=== PATIENT | male | born 1945 | race Caucasian/White ===

== ENCOUNTER 2023-11-21 22:50 | Inpatient (IN) | payer MEDICARE, OTHER ==
[~2023-11-21] VITALS: Ht 172.7 cm; Wt 90.4 kg
[~2023-11-21 22:50] MED LIST: DIOVAN PO
[2023-11-21 23:00] VITALS: BP 131/67; TEMP 98.3; O2SAT 97
[2023-11-22] MEDS ORDERED: MIRALAX 17 GM POWD.PACK PO PRN (00:15)
[2023-11-22] MEDS ORDERED: POTASSIUM CHLORIDE IV SCH ×2 (00:15→14:00)
[2023-11-22] MEDS ORDERED: NORMAL SALINE FLUSH 10 ML DISP.SYRIN IV SCH (00:15)
[2023-11-22] MEDS ORDERED: HYDROMORPHONE 1 MG/1 ML DISP.SYRIN IV PRN ×2 (00:15→12:00)
[2023-11-22] MEDS ORDERED: SODIUM CHLORIDE IV SCH ×2 (00:15→14:00)
[2023-11-22] MEDS ORDERED: CEFTRIAXONE IV SCH (00:15)
[2023-11-22] MEDS ORDERED: TAMSULOSIN HCL 0.4 MG CAP.SR.24H PO SCH (00:15)
[2023-11-22] MEDS ORDERED: AMLO10TA4 PO (01:19)
[2023-11-22] MEDS ORDERED: PANT40TA49 PO (02:08)
[2023-11-22] MEDS ORDERED: MAGN2PIG IV (02:08)
[2023-11-22] MEDS ORDERED: ROSU10TA2 PO (02:08)
[2023-11-22] MEDS ORDERED: HEPA500034 SUBCUT (02:08)
[2023-11-22] MEDS ORDERED: INSU100I52 SUBCUT ×2 (02:08)
[2023-11-22] MEDS ORDERED: FINA5TAB11 PO (02:08)
[2023-11-22] MEDS ORDERED: CEFE2FRO IV (02:08)
[2023-11-22] MEDS ORDERED: FERR-68 PO (02:08)
[2023-11-22] MEDS ORDERED: HYDR1LIQ PO (02:08)
[2023-11-22] MEDS ORDERED: ASPI81TA31 PO (02:08)
[2023-11-22] MEDS ORDERED: CARV6.25 PO (02:08)
[2023-11-22] MEDS ORDERED: INSU100V7 SQ (02:08)
[2023-11-22] MEDS ORDERED: CANA100T PO (02:08)
[2023-11-22] MEDS ORDERED: AMLO5TAB4 PO (02:08)
[2023-11-22] MEDS ORDERED: AZEL205. BNOSTRILS (02:08)
[2023-11-22] MEDS ORDERED: METR500T IV (02:08)
[2023-11-22] MEDS ORDERED: CEFT2FRO2 IV ×2 (02:08)
[2023-11-22] MEDS ORDERED: DULO60CA45 PO (02:08)
[2023-11-22] MEDS ORDERED: LIDO30AD10 TD (02:08)
[2023-11-22] MEDS ORDERED: INSU100I52 SQ (02:08)
[2023-11-22] MEDS ORDERED: SODI IV (02:08)
[2023-11-22] MEDS ORDERED: MAGN400O6 PO ×2 (02:08)
[2023-11-22] MEDS ORDERED: ARIP20TA4 PO (02:08)
[2023-11-22] MEDS ORDERED: CLOP75TA33 PO (02:08)
[2023-11-22] MEDS ORDERED: POLY250017 PO (02:08)
[2023-11-22] MEDS ORDERED: TAMS-3 PO (02:09)
[2023-11-22] MEDS ORDERED: NA P133E RC (02:09)
[2023-11-22] MEDS ORDERED: VALS160T2 PO (02:09)
[2023-11-22] MEDS ORDERED: VALS80TA2 PO (02:09)
[2023-11-22] MEDS ORDERED: ACET-3117 PO (02:24)
[2023-11-22] MEDS ORDERED: FLEET ENEMA 133 ML BOTTLE RC ONE (04:15)
[2023-11-22] MEDS ORDERED: KETOROLAC TROMETHAMINE 15 MG INJ IM ONE (04:30)
[2023-11-22] MEDS ORDERED: IV NORMAL SALINE 500 ML IV ONE (04:30)
[2023-11-22] MEDS ORDERED: CLON0.1T PO (05:08)
[2023-11-22] MEDS ORDERED: POLY119P2 PO (05:23)
[2023-11-22] MEDS ORDERED: ONDA4TAB11 IJ (05:23)
[2023-11-22] MEDS ORDERED: SENN-18 PO (05:23)
[2023-11-22] MEDS ORDERED: ONDA4TAB5 PO (05:23)
[2023-11-22] MEDS ORDERED: DEXT50DI8 IV (05:23)
[2023-11-22] MEDS ORDERED: HYDR0.5S3 IJ (05:23)
[2023-11-22] MEDS ORDERED: HYDR-4209 PO (05:23)
[2023-11-22] MEDS ORDERED: DIAZ5TAB4 PO (05:23)
[2023-11-22] MEDS ORDERED: CLONIDINE HCL 0.1 MG TABLET PO PRN ×2 (05:30→11:45)
[2023-11-22 05:36] VITALS: BP 161/70; TEMP 98.2; O2SAT 95
[2023-11-22] MEDS ORDERED: METRONIDAZOLE 500 MG/NS 100ML 500 MG in PREMIXED 1 EACH IV SCH (06:00)
[2023-11-22] MEDS ORDERED: NS IV SCH (06:00)
[2023-11-22] MEDS ORDERED: CEFEPIME HCL IV SCH ×2 (06:00→14:00)
[2023-11-22] MEDS ORDERED: INSULIN LISPRO 300 UNIT/3 ML VIAL SQ SCH ×2 (06:00→07:30)
[2023-11-22] MEDS ORDERED: PANTOPRAZOLE SODIUM 40 MG TABLET.DR PO SCH (07:00)
[2023-11-22] MEDS ORDERED: CARVEDILOL 6.25 MG TABLET PO SCH (08:00)
[2023-11-22] MEDS ORDERED: CLOPIDOGREL 75 MG TABLET PO SCH (09:00)
[2023-11-22] MEDS ORDERED: MAGNESIUM HYDROXIDE 30 ML LIQUID UDC PO PRN ×2 (09:00→12:00)
[2023-11-22] MEDS ORDERED: LIDOCAINE 5% PATCH TD SCH (09:00)
[2023-11-22] MEDS ORDERED: AMLODIPINE 10 MG TABLET PO SCH (09:00)
[2023-11-22] MEDS ORDERED: FINASTERIDE 5 MG TABLET PO SCH (09:00)
[2023-11-22] MEDS ORDERED: FERROUS SULFATE 325 MG TABEC PO SCH (09:00)
[2023-11-22] MEDS ORDERED: DULOXETINE 60 MG CAPSULE.DR PO SCH (09:00)
[2023-11-22] MEDS ORDERED: VALSARTAN 160 MG TABLET PO SCH (09:00)
[2023-11-22] MEDS ORDERED: ASPIRIN EC 81 MG TABLET.DR PO SCH (09:00)
[2023-11-22] MEDS ORDERED: HEPARIN SODIUM,PORCINE 5,000 UNITS/ML VIAL SQ SCH (09:00)
[2023-11-22] MEDS ORDERED: AMLODIPINE 5 MG TABLET PO SCH (09:00)
[2023-11-22] MEDS ORDERED: VALSARTAN 80 MG TABLET PO SCH (09:00)
[2023-11-22] MEDS ORDERED: ONDANSETRON HCL 4 MG TABLET PO PRN (12:00)
[2023-11-22 12:02] VITALS: BP 144/73; TEMP 98; O2SAT 98
[2023-11-22] MEDS ORDERED: SENNOSIDES 1 TABLET PO PRN (12:15)
[2023-11-22] MEDS ORDERED: DEXTROSE 50% 50 ML DISP.SYRIN IV PRN (12:30)
[2023-11-22] MEDS: DULOXETINE 60 MG CAPSULE.DR PO SCH (13:32)
[2023-11-22] MEDS: ASPIRIN EC 81 MG TABLET.DR PO SCH (13:33)
[2023-11-22] MEDS: TAMSULOSIN HCL 0.4 MG CAP.SR.24H PO SCH (13:33)
[2023-11-22] MEDS: VALSARTAN 80 MG TABLET PO SCH (13:33)
[2023-11-22] MEDS: CLOPIDOGREL 75 MG TABLET PO SCH (13:34)
[2023-11-22] MEDS: PANTOPRAZOLE SODIUM 40 MG TABLET.DR PO SCH (13:34)
[2023-11-22] MEDS: FINASTERIDE 5 MG TABLET PO SCH (13:34)
[2023-11-22] MEDS: AMLODIPINE 10 MG TABLET PO SCH (13:34)
[2023-11-22] MEDS: INSULIN GLARGINE,HUM 300 UNITS/3 ML CARTRIDGE SQ SCH (13:40)
[2023-11-22] MEDS: INSULIN REGULAR, HUMAN 1000 UNIT/10 ML VIAL SQ PRN (13:41)
[2023-11-22] MEDS: HYDROCODONE/APAP 5-325MG TABLET PO PRN (15:28)
[2023-11-22 16:06] VITALS: BP 148/76; TEMP 97.1; O2SAT 97
[2023-11-22] MEDS: FERROUS SULFATE 325 MG TABEC PO SCH (17:01)
[2023-11-22] MEDS: CARVEDILOL 6.25 MG TABLET PO SCH (17:01)
[2023-11-22] MEDS: BLOOD SUGAR DIAGNOSTIC 1 EACH STRIP VI SCH (17:01)
[2023-11-22 20:00] VITALS: BP 136/72; TEMP 98.2; O2SAT 96
[2023-11-22] MEDS ORDERED: INSULIN GLARGINE,HUM 300 UNITS/3 ML CARTRIDGE SQ SCH (21:00)
[2023-11-22] MEDS ORDERED: ARIPIPRAZOLE 10 MG TABLET PO SCH (21:00)
[2023-11-22] MEDS: ATORVASTATIN 20 MG TABLET PO SCH (21:15)
[2023-11-22] MEDS: HEPARIN SODIUM,PORCINE 5,000 UNITS/ML VIAL SQ SCH (22:15)
[2023-11-23 06:00] VITALS: BP 145/68; TEMP 98.2; O2SAT 95
[2023-11-23] MEDS: MIRALAX 17 GM POWD.PACK PO SCH (08:53)
[2023-11-23 09:11] VITALS: BP 158/71; TEMP 98; O2SAT 95
[2023-11-23 16:00] VITALS: BP 120/62; TEMP 97.7; O2SAT 96
[2023-11-23 20:31] VITALS: BP 140/76; TEMP 98.3; O2SAT 94
[2023-11-23] MEDS: TAMSULOSIN HCL 0.4 MG CAP.SR.24H PO SCH (20:45)
[2023-11-24 06:41] VITALS: BP 157/83; TEMP 97.9; O2SAT 96
[2023-11-24 08:45] VITALS: BP 159/76; TEMP 98; O2SAT 97
[2023-11-24] MEDS: LIDOCAINE 5% PATCH TD PRN (08:58)
[2023-11-24 15:56] VITALS: BP 115/47; TEMP 98.4; O2SAT 100
[2023-11-24] MEDS: METRONIDAZOLE 500 MG TABLET PO SCH (21:06)
[2023-11-24 22:17] VITALS: BP 139/83; TEMP 98.2; O2SAT 100
[2023-11-24] MEDS ORDERED: CEFEPIME HCL 1 G VIAL ONE (22:40)
[2023-11-24] MEDS: CEFEPIME HCL 2 GM in IV DEXTROSE 5% 100 ML IV SCH (22:53)
[2023-11-25 06:04] LABS: BASOPHILS % (AUTO) 0.4 % (0.0-2.0); EOSINOPHILS # (AUTO) 0.2 K/uL (0.0-0.7); EOSINOPHILS % (AUTO) 1.9 % (0.0-7.0); HEMATOCRIT 32.5 % (36.7-47.1); HEMOGLOBIN 10.3 g/dL (12.5-16.3); LYMPHOCYTES # (AUTO) 2.7 K/uL (0.8-4.8); LYMPHOCYTES % (AUTO) 25.4 % (20.5-51.5); MEAN CORPUSCULAR HEMOGLOBIN 28.9 uug (23.8-33.4); MEAN CORPUSCULAR HGB CONC 32 g/dL (32.5-36.3); MEAN CORPUSCULAR VOLUME 91.6 fL (73.0-96.2); MONOCYTES # (AUTO) 1.2 K/uL (0.1-1.30); NEUTROPHILS # (AUTO) 6.4 K/uL (1.8-8.9); NEUTROPHILS % (AUTO) 61.3 % (38.5-71.5); PLATELET COUNT (AUTO) 267 K/uL (152-348); RED BLOOD CELL COUNT(AUTO) 3.55 MIL/uL (4.06-5.63); WHITE BLOOD COUNT (AUTO) 10.5 K/uL (3.6-10.2)
[2023-11-25 06:24] LABS: IRON, SERUM 49 ug/dL (50-175)
[2023-11-25 06:30] LABS: THYROID STIMULATING HORMONE 2.028 mIU/mL (0.358-3.740)
[2023-11-25 06:57] LABS: ALANINE AMINOTRANSFERASE 28 U/L (16-63); ALBUMIN 2.4 g/dL (3.4-5.0); ALKALINE PHOSPHATASE 71 U/L (50-136); ASPARTATE AMINOTRANSFERASE 27 U/L (15-37); BILIRUBIN,TOTAL 0.3 mg/dL (0.2-1.0); CALCIUM 8.7 mg/dL (8.5-10.1); CARBON DIOXIDE 27 mmol/L (21-32); CHLORIDE 104 mmol/L (98-107); CHOLESTEROL 139 mg/dL (<200); CREATININE 0.9 mg/dL (0.6-1.3); GLUCOSE 172 mg/dL (74-106); HDL CHOLESTEROL 38 mg/dL (40-60); PHOSPHOROUS 3.2 mg/dL (2.5-4.9); POTASSIUM 4.2 mmol/L (3.5-5.1); SODIUM SERUM 137 mmol/L (136-145); TOTAL PROTEIN, SERUM 6.7 g/dL (6.4-8.2); TRIGLYCERIDES 138 MG/DL (30-150); UREA NITROGEN, BLOOD 16 mg/dL (7-18)
[2023-11-25 07:30] VITALS: BP 176/86; TEMP 98.2; O2SAT 94
[2023-11-25 09:00] VITALS: BP 145/66; O2SAT 100
[2023-11-25] MEDS: HYDROMORPHONE 1 MG/1 ML DISP.SYRIN IV PRN (10:03)
[2023-11-25 16:13] VITALS: BP 139/71; TEMP 97.5
[2023-11-25 20:00] VITALS: BP 137/76; TEMP 97.9; O2SAT 98
[2023-11-26 06:00] VITALS: BP 144/72; TEMP 98; O2SAT 100
[2023-11-26 11:40] VITALS: BP 154/73; TEMP 98.2; O2SAT 95
[2023-11-26 16:21] VITALS: BP 143/71; TEMP 97.9; O2SAT 98
[2023-11-26] MEDS: DIAZEPAM 5 MG TABLET PO PRN (18:49)
[2023-11-26 22:30] VITALS: BP 119/54; TEMP 98.2; O2SAT 92
[2023-11-27 07:01] VITALS: BP 158/70; TEMP 97.8; O2SAT 97
[2023-11-27] MEDS: ACETAMINOPHEN 325 MG TABLET PO PRN (09:43)
[2023-11-27] MEDS: OXYCODONE HCL 5 MG TABLET PO PRN (10:48)
[2023-11-27] MEDS: HYDROCODONE/APAP 5-325MG TABLET PO SCH (13:27)
[2023-11-27] MEDS: METHOCARBAMOL 500 MG TABLET PO SCH (13:27)
[2023-11-27 16:00] VITALS: BP 135/84; TEMP 98.2; O2SAT 97
[2023-11-27 22:25] VITALS: BP 126/70; TEMP 97.5; O2SAT 96
[2023-11-28 04:44] VITALS: BP 146/82; TEMP 98.2; O2SAT 97
[2023-11-28 09:13] VITALS: BP 131/66; TEMP 98.1; O2SAT 95
[2023-11-28 14:07] VITALS: BP 131/66; TEMP 98; O2SAT 96
[2023-11-29 09:00] LABS: THYROID STIMULATING HORMONE 2.302 mIU/mL (0.358-3.740)
[2023-11-30] MEDS ORDERED: METH-806 PO (18:23)
[2023-11-30] MEDS ORDERED: CEFE2FRO IV (18:23)
[2023-11-30] MEDS ORDERED: METR500T PO (18:23)
[2023-11-30] MEDS ORDERED: ATOR20TA PO (18:23)
[2023-12-02 14:06] LABS: METHYLMALONIC ACID 292 nmol/L (0-378)
== END 2023-11-28 13:54 | disposition short-term general hospital (02) | DRG 559 ==
PROVIDERS: ADMIT Physical Medicine & Rehabilitation Pain Medicine; ATTEND Physical Medicine & Rehabilitation Pain Medicine
DX: Z47.89 Encounter for other orthopedic aftercare (principal); A41.52 Sepsis due to Pseudomonas; G06.1 Intraspinal abscess and granuloma; N17.9 Acute kidney failure, unspecified; D50.9 Iron deficiency anemia, unspecified; R55 Syncope and collapse; E78.5 Hyperlipidemia, unspecified; F39 Unspecified mood [affective] disorder; I10 Essential (primary) hypertension; I25.10 Atherosclerotic heart disease of native coronary artery without angina pectoris; N40.0 Benign prostatic hyperplasia without lower urinary tract symptoms; E11.9 Type 2 diabetes mellitus without complications; Z95.5 Presence of coronary angioplasty implant and graft
CPT/HCPCS: 36415; 83550; 83735; 83921; 84100; 84443; 85025; J0692; J1170; J1644; J1815; J3490

== ENCOUNTER 2023-11-28 14:18 | Inpatient (IN) | payer MEDICARE, OTHER ==
[~2023-11-28] VITALS: Ht 172.7 cm; Wt 90.3 kg
[~2023-11-28 14:18] MED LIST changes: +ACET-3117 PO; +AMLO10TA4 PO; +ASPI81TA31 PO; +AZEL205. BNOSTRILS; +CANA100T PO; +CARV6.25 PO; +CLON0.1T PO; +CLOP75TA33 PO; +DEXT50DI8 IV; +DIAZ5TAB4 PO; -DIOVAN PO; +DULO60CA45 PO; +FERR-68 PO; +FINA5TAB11 PO; +HEPA500034 SUBCUT; +HYDR-4209 PO; +HYDR0.5S3 IJ; +INSU100I52 SQ; +INSU100V7 SQ; +MAGN400O6 PO; +ONDA4TAB5 PO; +PANT40TA49 PO; +POLY119P2 PO; +ROSU10TA2 PO; +SENN-18 PO; +TAMS-3 PO; +VALS80TA2 PO
[2023-11-28] MEDS ORDERED: ACETAMINOPHEN 325 MG TABLET PO PRN (14:30)
[2023-11-28] MEDS ORDERED: CLONIDINE HCL 0.1 MG TABLET PO PRN (14:45)
[2023-11-28] MEDS ORDERED: DIAZEPAM 5 MG TABLET PO PRN (14:45)
[2023-11-28] MEDS ORDERED: DEXTROSE 50% 50 ML DISP.SYRIN IV PRN ×2 (15:00→16:15)
[2023-11-28] MEDS ORDERED: MAGNESIUM HYDROXIDE 30 ML LIQUID UDC PO PRN ×2 (15:00→16:15)
[2023-11-28] MEDS ORDERED: SENNOSIDES 1 TABLET PO PRN ×2 (15:00→16:15)
[2023-11-28] MEDS ORDERED: ONDANSETRON HCL 4 MG TABLET PO PRN (15:00)
[2023-11-28 16:00] VITALS: BP 141/89; TEMP 98.2; O2SAT 98
[2023-11-28] MEDS ORDERED: HYDROCODONE/APAP 5-325MG TABLET PO PRN (16:15)
[2023-11-28] MEDS: METHOCARBAMOL 500 MG TABLET PO SCH (16:25)
[2023-11-28] MEDS ORDERED: PANTOPRAZOLE SODIUM 40 MG TABLET.DR PO SCH (16:30)
[2023-11-28] MEDS: METRONIDAZOLE 500 MG TABLET PO SCH (16:30)
[2023-11-28] MEDS ORDERED: CARVEDILOL 6.25 MG TABLET PO SCH (17:00)
[2023-11-28] MEDS ORDERED: FERROUS SULFATE 325 MG TABEC PO SCH (17:00)
[2023-11-28] MEDS: BLOOD SUGAR DIAGNOSTIC 1 EACH STRIP VI SCH (17:35)
[2023-11-28] MEDS: CARVEDILOL 6.25 MG TABLET PO SCH (17:37)
[2023-11-28] MEDS: OXYCODONE HCL 5 MG TABLET PO PRN (17:38)
[2023-11-28] MEDS: FERROUS SULFATE 325 MG TABEC PO SCH (17:40)
[2023-11-28] MEDS: CEFEPIME HCL 2 GM in IV DEXTROSE 5% 100 ML IV SCH (17:41)
[2023-11-28] MEDS ORDERED: CLONIDINE HCL 0.1 MG TABLET PO SCH (18:00)
[2023-11-28] MEDS ORDERED: ONDANSETRON HCL 4 MG TABLET PO SCH (18:00)
[2023-11-28] MEDS ORDERED: DIAZEPAM 5 MG TABLET PO SCH (18:00)
[2023-11-28] MEDS: INSULIN REGULAR, HUMAN 1000 UNIT/10 ML VIAL SQ PRN (18:21)
[2023-11-28 20:16] VITALS: BP 121/65; TEMP 98.4; O2SAT 96
[2023-11-28] MEDS: ATORVASTATIN 20 MG TABLET PO SCH (20:51)
[2023-11-28] MEDS: TAMSULOSIN HCL 0.4 MG CAP.SR.24H PO SCH (20:52)
[2023-11-28] MEDS: HEPARIN SODIUM,PORCINE 5,000 UNITS/ML VIAL SQ SCH (20:56)
[2023-11-28] MEDS: HYDROCODONE/APAP 5-325MG TABLET PO SCH (21:27)
[2023-11-28 23:45] VITALS: BP 125/65; TEMP 98.3; O2SAT 97
[2023-11-29] VITALS (7 sets, daily range): BP systolic 76–128; BP diastolic 48–69; TEMP 97.4–98.3; O2SAT 96–98
[2023-11-29 08:29] LABS: BASOPHILS # (AUTO) 0.1 K/UL (0.0-0.2); BASOPHILS % (AUTO) 1.1 % (0.0-2.0); EOSINOPHILS # (AUTO) 0.3 K/uL (0.0-0.7); EOSINOPHILS % (AUTO) 3.3 % (0.0-7.0); HEMATOCRIT 31.2 % (36.7-47.1); HEMOGLOBIN 10.2 g/dL (12.5-16.3); LYMPHOCYTES # (AUTO) 2.4 K/uL (0.8-4.8); LYMPHOCYTES % (AUTO) 27.9 % (20.5-51.5); MEAN CORPUSCULAR HEMOGLOBIN 29.9 uug (23.8-33.4); MEAN CORPUSCULAR HGB CONC 33 g/dL (32.5-36.3); MEAN CORPUSCULAR VOLUME 91.7 fL (73.0-96.2); MONOCYTES # (AUTO) 1.1 K/uL (0.1-1.30); MONOCYTES % (AUTO) 12.2 % (0.0-11.0); NEUTROPHILS # (AUTO) 4.8 K/uL (1.8-8.9); NEUTROPHILS % (AUTO) 55.5 % (38.5-71.5); PLATELET COUNT (AUTO) 242 K/uL (152-348); RED CELL DISTRIBUTION WIDTH 18.4 % (12.1-16.2); WHITE BLOOD COUNT (AUTO) 8.7 K/uL (3.6-10.2)
[2023-11-29 08:35] LABS: DIFFERENTIAL COMMENT 1
[2023-11-29 08:39] LABS: CALCIUM 8.8 mg/dL (8.5-10.1); CARBON DIOXIDE 27 mmol/L (21-32); CHLORIDE 103 mmol/L (98-107); CREATININE 1.1 mg/dL (0.6-1.3); GLUCOSE 180 mg/dL (74-106); POTASSIUM 4.5 mmol/L (3.5-5.1); SODIUM SERUM 135 mmol/L (136-145); UREA NITROGEN, BLOOD 24 mg/dL (7-18)
[2023-11-29 08:47] LABS: ALANINE AMINOTRANSFERASE 20 U/L (16-63); ALBUMIN 2.4 g/dL (3.4-5.0); ALKALINE PHOSPHATASE 79 U/L (50-136); ASPARTATE AMINOTRANSFERASE 13 U/L (15-37); BILIRUBIN,TOTAL 0.4 mg/dL (0.2-1.0); TOTAL PROTEIN, SERUM 6.8 g/dL (6.4-8.2)
[2023-11-29] MEDS ORDERED: FINASTERIDE 5 MG TABLET PO SCH (09:00)
[2023-11-29] MEDS ORDERED: ASPIRIN 81 MG TAB.CHEW PO SCH (09:00)
[2023-11-29] MEDS ORDERED: CLOPIDOGREL 75 MG TABLET PO SCH (09:00)
[2023-11-29] MEDS ORDERED: POLYETHYLENE GLYCOL 3350 238 GM POWDER PO SCH (09:00)
[2023-11-29] MEDS ORDERED: AMLODIPINE 10 MG TABLET PO SCH (09:00)
[2023-11-29] MEDS ORDERED: DULOXETINE 60 MG CAPSULE.DR PO SCH (09:00)
[2023-11-29] MEDS ORDERED: VALSARTAN 80 MG TABLET PO SCH (09:00)
[2023-11-29] MEDS ORDERED: TAMSULOSIN HCL 0.4 MG CAP.SR.24H PO SCH (09:00)
[2023-11-29] MEDS: VALSARTAN 80 MG TABLET PO SCH (09:30)
[2023-11-29] MEDS: DULOXETINE 60 MG CAPSULE.DR PO SCH (09:30)
[2023-11-29] MEDS: MIRALAX 17 GM POWD.PACK PO SCH (09:31)
[2023-11-29] MEDS: FINASTERIDE 5 MG TABLET PO SCH (09:31)
[2023-11-29] MEDS: AMLODIPINE 10 MG TABLET PO SCH (09:31)
[2023-11-29] MEDS: CLOPIDOGREL 75 MG TABLET PO SCH (09:31)
[2023-11-29] MEDS: ASPIRIN EC 81 MG TABLET.DR PO SCH (09:31)
[2023-11-29] MEDS: INSULIN GLARGINE,HUM 300 UNITS/3 ML CARTRIDGE SQ SCH (09:34)
[2023-11-29] MEDS: PANTOPRAZOLE SODIUM 40 MG TABLET.DR PO SCH (09:40)
[2023-11-30] VITALS (7 sets, daily range): BP systolic 67–171; BP diastolic 41–90; TEMP 97.7–98.9; O2SAT 96–99
[2023-11-30 06:52] LABS: CALCIUM 8.8 mg/dL (8.5-10.1); CARBON DIOXIDE 26 mmol/L (21-32); CHLORIDE 103 mmol/L (98-107); CREATININE 0.9 mg/dL (0.6-1.3); GLUCOSE 184 mg/dL (74-106); POTASSIUM 4.4 mmol/L (3.5-5.1); SODIUM SERUM 135 mmol/L (136-145); UREA NITROGEN, BLOOD 23 mg/dL (7-18)
[2023-11-30] MEDS: IV NORMAL SALINE 500 ML BAG IV ONE (09:32)
[2023-11-30] MEDS: LIDOCAINE 5% PATCH TD PRN (14:41)
[2023-11-30] MEDS ORDERED: ATOR20TA PO (18:23)
[2023-11-30] MEDS ORDERED: METR500T PO (18:23)
[2023-11-30] MEDS ORDERED: CEFE2FRO IV (18:23)
[2023-11-30] MEDS ORDERED: METH-806 PO (18:23)
== END 2023-11-30 19:02 | DRG 73 ==
LOC: UNDOADMIN 14:18 → TELE3 14:18 → UNDODISIN 11-30 19:02
PROVIDERS: ADMIT Internal Medicine; ATTEND Internal Medicine
DX: G90.8 Other disorders of autonomic nervous system (principal); G06.1 Intraspinal abscess and granuloma; R78.81 Bacteremia; Z79.02 Long term (current) use of antithrombotics/antiplatelets; I95.1 Orthostatic hypotension; B96.5 Pseudomonas (aeruginosa) (mallei) (pseudomallei) as the cause of diseases classified elsewhere; R26.9 Unspecified abnormalities of gait and mobility; E78.5 Hyperlipidemia, unspecified; E11.9 Type 2 diabetes mellitus without complications; I25.10 Atherosclerotic heart disease of native coronary artery without angina pectoris; Z98.61 Coronary angioplasty status; I10 Essential (primary) hypertension; M54.50 Low back pain, unspecified; Z79.899 Other long term (current) drug therapy; Z79.82 Long term (current) use of aspirin
CPT/HCPCS: 36415; 70450; 71045; 85025; 93307; A4663; G0378; J0692; J1644; J1815; J7040

== ENCOUNTER 2023-11-30 19:03 | Inpatient (IN) | payer MEDICARE, OTHER ==
[~2023-11-30] VITALS: Ht 172.7 cm; Wt 52.2 kg
[~2023-11-30 19:03] MED LIST changes: +ATOR20TA PO; +CEFE2FRO IV; +METH-806 PO; +METR500T PO
[2023-11-30 20:00] VITALS: BP 122/65; TEMP 97.9; O2SAT 96
[2023-11-30] MEDS ORDERED: ACETAMINOPHEN 325 MG TABLET PO PRN (21:15)
[2023-11-30] MEDS ORDERED: DEXTROSE 50% 50 ML DISP.SYRIN IV PRN ×2 (21:15→22:45)
[2023-11-30] MEDS ORDERED: HOME MED MISCELLANEOUS XX SCH ×2 (21:15)
[2023-11-30] MEDS ORDERED: MAGNESIUM HYDROXIDE 30 ML LIQUID UDC PO PRN (21:15)
[2023-11-30] MEDS: METHOCARBAMOL 500 MG TABLET PO SCH (22:28)
[2023-11-30] MEDS: METRONIDAZOLE 500 MG TABLET PO SCH (22:28)
[2023-11-30] MEDS: HYDROCODONE/APAP 5-325MG TABLET PO PRN (22:29)
[2023-12-01] MEDS: ONDANSETRON HCL 4 MG TABLET PO SCH (00:08)
[2023-12-01] MEDS: DIAZEPAM 5 MG TABLET PO SCH (00:09)
[2023-12-01] MEDS: PANTOPRAZOLE SODIUM 40 MG TABLET.DR PO SCH (06:30)
[2023-12-01] MEDS: BLOOD SUGAR DIAGNOSTIC 1 EACH STRIP VI SCH (06:32)
[2023-12-01 07:05] VITALS: BP 152/83; TEMP 98.4; O2SAT 96
[2023-12-01] MEDS: AMLODIPINE 10 MG TABLET PO SCH (08:40)
[2023-12-01] MEDS: DULOXETINE 60 MG CAPSULE.DR PO SCH (08:40)
[2023-12-01] MEDS: FINASTERIDE 5 MG TABLET PO SCH (08:41)
[2023-12-01] MEDS: INSULIN REGULAR, HUMAN 1000 UNIT/10 ML VIAL SQ PRN (08:41)
[2023-12-01] MEDS: CLOPIDOGREL 75 MG TABLET PO SCH (08:42)
[2023-12-01] MEDS: ASPIRIN 81 MG TAB.CHEW PO SCH (08:42)
[2023-12-01] MEDS: TAMSULOSIN HCL 0.4 MG CAP.SR.24H PO SCH (08:42)
[2023-12-01] MEDS: FERROUS SULFATE 325 MG TABEC PO SCH (08:42)
[2023-12-01] MEDS: CARVEDILOL 6.25 MG TABLET PO SCH (08:42)
[2023-12-01] MEDS: POLYETHYLENE GLYCOL 3350 238 GM POWDER PO SCH (08:43)
[2023-12-01] MEDS: MIRALAX 17 GM POWD.PACK PO SCH (08:43)
[2023-12-01] MEDS: VALSARTAN 80 MG TABLET PO SCH (08:44)
[2023-12-01] MEDS: INSULIN GLARGINE,HUM 300 UNITS/3 ML CARTRIDGE SQ SCH (09:00)
[2023-12-01] MEDS ORDERED: CEFEPIME HCL 2 GM in IV DEXTROSE 5% 100 ML IV SCH (09:00)
[2023-12-01] MEDS: CEFEPIME HCL 2 GM in IV DEXTROSE 5% 100 ML IV SCH (09:44)
[2023-12-01] MEDS: HEPARIN SODIUM,PORCINE 5,000 UNITS/ML VIAL IV SCH (09:48)
[2023-12-01] MEDS ORDERED: ONDANSETRON HCL 4 MG TABLET PO PRN (11:30)
[2023-12-01 16:21] VITALS: BP 138/72; TEMP 97.4; O2SAT 99
[2023-12-01 19:00] VITALS: BP 156/75; TEMP 97.8; O2SAT 95
[2023-12-01] MEDS: ATORVASTATIN 20 MG TABLET PO SCH (21:28)
[2023-12-01] MEDS: SENNOSIDES 1 TABLET PO PRN (21:28)
[2023-12-01] MEDS: HEPARIN SODIUM,PORCINE 5,000 UNITS/ML VIAL SQ SCH (21:30)
[2023-12-02 06:00] VITALS: BP 150/72; TEMP 98.1; O2SAT 95
[2023-12-02] MEDS: PANTOPRAZOLE SODIUM 40 MG TABLET.DR PO SCH (06:07)
[2023-12-02] MEDS: FLUDROCORTISONE ACETATE 0.1 MG TABLET PO SCH (08:24)
[2023-12-02 16:00] VITALS: BP 139/85; TEMP 98.4; O2SAT 95
[2023-12-02 16:56] LABS: BASOPHILS # (AUTO) 0.4 K/UL (0.0-0.2); BASOPHILS % (AUTO) 3.6 % (0.0-2.0); EOSINOPHILS # (AUTO) 0.4 K/uL (0.0-0.7); EOSINOPHILS % (AUTO) 3.9 % (0.0-7.0); HEMATOCRIT 32.5 % (36.7-47.1); HEMOGLOBIN 10.6 g/dL (12.5-16.3); LYMPHOCYTES # (AUTO) 1.9 K/uL (0.8-4.8); LYMPHOCYTES % (AUTO) 19.3 % (20.5-51.5); MEAN CORPUSCULAR HEMOGLOBIN 29.9 uug (23.8-33.4); MEAN CORPUSCULAR HGB CONC 33 g/dL (32.5-36.3); MEAN CORPUSCULAR VOLUME 92.1 fL (73.0-96.2); MONOCYTES # (AUTO) 0.9 K/uL (0.1-1.30); MONOCYTES % (AUTO) 9.1 % (0.0-11.0); NEUTROPHILS # (AUTO) 6.3 K/uL (1.8-8.9); NEUTROPHILS % (AUTO) 64.1 % (38.5-71.5); PLATELET COUNT (AUTO) 209 K/uL (152-348); RED BLOOD CELL COUNT(AUTO) 3.53 MIL/uL (4.06-5.63); RED CELL DISTRIBUTION WIDTH 19.1 % (12.1-16.2); WHITE BLOOD COUNT (AUTO) 9.8 K/uL (3.6-10.2)
[2023-12-02 17:00] LABS: DIFFERENTIAL COMMENT 1
[2023-12-02 17:03] LABS: ALANINE AMINOTRANSFERASE 21 U/L (16-63); ALBUMIN 2.7 g/dL (3.4-5.0); ALKALINE PHOSPHATASE 90 U/L (50-136); ASPARTATE AMINOTRANSFERASE 18 U/L (15-37); BILIRUBIN,TOTAL 0.4 mg/dL (0.2-1.0); CALCIUM 8.9 mg/dL (8.5-10.1); CARBON DIOXIDE 26 mmol/L (21-32); CHLORIDE 102 mmol/L (98-107); CREATININE 1.1 mg/dL (0.6-1.3); GLUCOSE 193 mg/dL (74-106); POTASSIUM 4.6 mmol/L (3.5-5.1); SODIUM SERUM 135 mmol/L (136-145); TOTAL PROTEIN, SERUM 7.1 g/dL (6.4-8.2); UREA NITROGEN, BLOOD 22 mg/dL (7-18)
[2023-12-02] MEDS: OXYCODONE HCL 5 MG TABLET PO SCH (17:29)
[2023-12-02 18:46] LABS: BAND % (MANUAL) 7 % (0-10); EOSINOPHILS % (MANUAL) 4 % (0-8); LYMPHOCYTES % (MANUAL) 24 % (20-40); METAMYELOCYTES % 1 % (0-1); MONOCYTES % (MANUAL) 8 % (2-10); NEUTROPHILS % (MANUAL) 56 % (42-75)
[2023-12-02 18:47] LABS: ANISOCYTOSIS 2+; PLATELET ESTIMATE ADEQUATE
[2023-12-02 20:27] VITALS: BP 143/80; TEMP 98.1; O2SAT 95
[2023-12-02] MEDS: TAMSULOSIN HCL 0.4 MG CAP.SR.24H PO SCH (20:38)
[2023-12-03 06:25] VITALS: BP 131/72; TEMP 98; O2SAT 95
[2023-12-03 07:02] LABS: CALCIUM 8.7 mg/dL (8.5-10.1); CARBON DIOXIDE 25 mmol/L (21-32); CHLORIDE 102 mmol/L (98-107); GLUCOSE 212 mg/dL (74-106); SODIUM SERUM 134 mmol/L (136-145); UREA NITROGEN, BLOOD 20 mg/dL (7-18)
[2023-12-03 07:14] LABS: POTASSIUM 4.3 mmol/L (3.5-5.1)
[2023-12-03] MEDS: LIDOCAINE 5% PATCH TD SCH (14:55)
[2023-12-03 16:44] VITALS: BP 137/70; TEMP 98.3; O2SAT 96
[2023-12-03] MEDS: ACIDOPHILUS/BULGARICUS CHEW TAB PO SCH (17:27)
[2023-12-04 06:59] VITALS: BP 150/78; TEMP 98.4; O2SAT 95
[2023-12-04 15:52] VITALS: BP 104/54; TEMP 98.4; O2SAT 95
[2023-12-04 21:50] VITALS: BP 137/72; TEMP 98.2; O2SAT 100
[2023-12-05 05:34] VITALS: BP 128/58; TEMP 98; O2SAT 99
[2023-12-05 16:52] VITALS: BP 96/84; TEMP 97.9; O2SAT 96
[2023-12-05] MEDS: TRIAMCINOLONE ACETONIDE 40 MG/1 ML VIAL MC ONE (17:13)
[2023-12-05] MEDS: LIDOCAINE HCL 1% 20 ML VIAL IJ ONE (17:14)
[2023-12-05 20:28] VITALS: BP 158/91; TEMP 98.2; O2SAT 98
[2023-12-06 06:30] VITALS: BP 133/84; TEMP 98; O2SAT 95
[2023-12-06 06:47] LABS: BASOPHILS # (AUTO) 0.3 K/UL (0.0-0.2); BASOPHILS % (AUTO) 3.3 % (0.0-2.0); EOSINOPHILS # (AUTO) 0.1 K/uL (0.0-0.7); EOSINOPHILS % (AUTO) 0.7 % (0.0-7.0); HEMATOCRIT 33.3 % (36.7-47.1); LYMPHOCYTES # (AUTO) 1.4 K/uL (0.8-4.8); LYMPHOCYTES % (AUTO) 15.7 % (20.5-51.5); MEAN CORPUSCULAR HEMOGLOBIN 30.3 uug (23.8-33.4); MEAN CORPUSCULAR HGB CONC 33 g/dL (32.5-36.3); MEAN CORPUSCULAR VOLUME 91.9 fL (73.0-96.2); MONOCYTES # (AUTO) 0.6 K/uL (0.1-1.30); NEUTROPHILS # (AUTO) 6.5 K/uL (1.8-8.9); NEUTROPHILS % (AUTO) 73.3 % (38.5-71.5); PLATELET COUNT (AUTO) 204 K/uL (152-348); RED BLOOD CELL COUNT(AUTO) 3.62 MIL/uL (4.06-5.63); RED CELL DISTRIBUTION WIDTH 19.5 % (12.1-16.2); WHITE BLOOD COUNT (AUTO) 8.9 K/uL (3.6-10.2)
[2023-12-06 07:11] LABS: ALANINE AMINOTRANSFERASE 14 U/L (16-63); ALBUMIN 2.6 g/dL (3.4-5.0); ALKALINE PHOSPHATASE 84 U/L (50-136); ASPARTATE AMINOTRANSFERASE 8 U/L (15-37); BILIRUBIN,TOTAL 0.4 mg/dL (0.2-1.0); CALCIUM 8.7 mg/dL (8.5-10.1); CARBON DIOXIDE 23 mmol/L (21-32); CHLORIDE 102 mmol/L (98-107); CREATININE 0.8 mg/dL (0.6-1.3); GLUCOSE 240 mg/dL (74-106); MAGNESIUM 1.9 mg/dL (1.8-2.4); PHOSPHOROUS 3.1 mg/dL (2.5-4.9); POTASSIUM 4.1 mmol/L (3.5-5.1); SODIUM SERUM 133 mmol/L (136-145); TOTAL PROTEIN, SERUM 7.2 g/dL (6.4-8.2); UREA NITROGEN, BLOOD 20 mg/dL (7-18)
[2023-12-06 07:43] LABS: DIFFERENTIAL COMMENT 1
[2023-12-06 10:30] VITALS: BP_SYST 103; BP_SYST 159; BP_SYST 96; BP_DIAS 62; BP_DIAS 66; BP_DIAS 88
[2023-12-06] MEDS: MIDODRINE HCL 5 MG TABLET PO SCH (13:45)
[2023-12-06 14:20] VITALS: BP 135/78
[2023-12-06 15:19] VITALS: BP 126/80; TEMP 97.6; O2SAT 98
[2023-12-06 20:00] VITALS: BP 143/72; TEMP 98.3; O2SAT 96
[2023-12-07 06:00] VITALS: BP 161/84; TEMP 98.6; O2SAT 96
[2023-12-07 08:27] VITALS: BP 162/91; TEMP 97.6; O2SAT 96
[2023-12-07] MEDS ORDERED: VALSARTAN 160 MG TABLET PO SCH (09:00)
[2023-12-07] MEDS ORDERED: VALSARTAN 80 MG TABLET PO SCH (09:00)
[2023-12-07] MEDS: VALSARTAN 160 MG TABLET PO SCH (09:04)
[2023-12-07] MEDS: INSULIN GLARGINE,HUM 300 UNITS/3 ML CARTRIDGE SQ SCH (09:28)
[2023-12-07] MEDS: CARVEDILOL 6.25 MG TABLET PO SCH (09:29)
[2023-12-07 16:00] VITALS: BP 107/58; TEMP 98.5; O2SAT 96
[2023-12-07 20:00] VITALS: BP 156/82; TEMP 97.9; O2SAT 98
[2023-12-08 06:00] VITALS: BP 163/91; TEMP 98.2; O2SAT 96
[2023-12-08 08:50] LABS: BASOPHILS % (AUTO) 0.5 % (0.0-2.0); EOSINOPHILS # (AUTO) 0.4 K/uL (0.0-0.7); EOSINOPHILS % (AUTO) 4.2 % (0.0-7.0); HEMATOCRIT 32.6 % (36.7-47.1); HEMOGLOBIN 10.9 g/dL (12.5-16.3); LYMPHOCYTES # (AUTO) 2.2 K/uL (0.8-4.8); LYMPHOCYTES % (AUTO) 24.1 % (20.5-51.5); MEAN CORPUSCULAR HEMOGLOBIN 30.8 uug (23.8-33.4); MEAN CORPUSCULAR HGB CONC 33 g/dL (32.5-36.3); MEAN CORPUSCULAR VOLUME 92.2 fL (73.0-96.2); MONOCYTES % (AUTO) 10.5 % (0.0-11.0); NEUTROPHILS # (AUTO) 5.6 K/uL (1.8-8.9); NEUTROPHILS % (AUTO) 60.7 % (38.5-71.5); PLATELET COUNT (AUTO) 198 K/uL (152-348); RED BLOOD CELL COUNT(AUTO) 3.54 MIL/uL (4.06-5.63); RED CELL DISTRIBUTION WIDTH 19.4 % (12.1-16.2); WHITE BLOOD COUNT (AUTO) 9.2 K/uL (3.6-10.2)
[2023-12-08 08:51] LABS: DIFFERENTIAL COMMENT 1
[2023-12-08 09:03] LABS: ALANINE AMINOTRANSFERASE 8 U/L (16-63); ALBUMIN 2.7 g/dL (3.4-5.0); ALKALINE PHOSPHATASE 85 U/L (50-136); ASPARTATE AMINOTRANSFERASE 10 U/L (15-37); BILIRUBIN,TOTAL 0.4 mg/dL (0.2-1.0); CALCIUM 9.1 mg/dL (8.5-10.1); CARBON DIOXIDE 26 mmol/L (21-32); CHLORIDE 105 mmol/L (98-107); CREATININE 0.8 mg/dL (0.6-1.3); GLUCOSE 203 mg/dL (74-106); MAGNESIUM 1.8 mg/dL (1.8-2.4); PHOSPHOROUS 3.4 mg/dL (2.5-4.9); POTASSIUM 4.3 mmol/L (3.5-5.1); SODIUM SERUM 138 mmol/L (136-145); TOTAL PROTEIN, SERUM 7.2 g/dL (6.4-8.2); UREA NITROGEN, BLOOD 24 mg/dL (7-18)
[2023-12-08] MEDS: IV NORMAL SALINE 500 ML BAG IV ONE (09:32)
[2023-12-08 11:19] LABS: BAND % (MANUAL) 2 % (0-10); EOSINOPHILS % (MANUAL) 4 % (0-8); LYMPHOCYTES % (MANUAL) 24 % (20-40); MONOCYTES % (MANUAL) 4 % (2-10); NEUTROPHILS % (MANUAL) 66 % (42-75)
[2023-12-08 11:20] LABS: ANISOCYTOSIS 2+; PLATELET ESTIMATE ADEQUATE
[2023-12-08 18:00] VITALS: BP 127/70; TEMP 98; O2SAT 98
[2023-12-08 20:00] VITALS: BP 126/68; TEMP 97.6; O2SAT 97
[2023-12-09 06:42] VITALS: BP 170/89; TEMP 98; O2SAT 97
[2023-12-09 07:27] LABS: CALCIUM 9.1 mg/dL (8.5-10.1); CARBON DIOXIDE 24 mmol/L (21-32); CHLORIDE 103 mmol/L (98-107); CREATININE 0.8 mg/dL (0.6-1.3); GLUCOSE 228 mg/dL (74-106); POTASSIUM 4.1 mmol/L (3.5-5.1); SODIUM SERUM 134 mmol/L (136-145); UREA NITROGEN, BLOOD 21 mg/dL (7-18)
[2023-12-09] MEDS ORDERED: REMEDY ESSENTIAL ZINC PASTE 113 GM TOP PRN (11:30)
[2023-12-09 16:24] VITALS: BP 140/74; TEMP 97.9; O2SAT 98
[2023-12-09] MEDS: CLOTRIMAZOLE 1% CREAM 30 GM TUBE TOP SCH (17:02)
[2023-12-09 20:40] VITALS: BP 171/82; TEMP 97.8; O2SAT 97
[2023-12-09] MEDS: CLONIDINE HCL 0.1 MG TABLET PO PRN (21:12)
[2023-12-09] MEDS: REMEDY ESSENTIAL ZINC PASTE 113 GM TOP SCH (21:13)
[2023-12-10 06:10] VITALS: BP 156/90; TEMP 97.9; O2SAT 96
[2023-12-10 16:24] VITALS: BP 126/61; TEMP 98.2; O2SAT 98
[2023-12-10 19:38] VITALS: BP 109/70; TEMP 98.6; O2SAT 97
[2023-12-11 06:10] VITALS: BP 160/91; TEMP 98.4; O2SAT 95
[2023-12-11 16:06] VITALS: BP 125/71; TEMP 98.2; O2SAT 99
[2023-12-11 20:00] VITALS: BP 144/78; TEMP 97.9; O2SAT 97
[2023-12-12 06:00] VITALS: BP 163/75; TEMP 97.9; O2SAT 97
[2023-12-12 09:00] VITALS: BP 145/75; TEMP 98.6; O2SAT 95
[2023-12-12 16:00] VITALS: BP 130/70; TEMP 98.7; O2SAT 97
[2023-12-12] MEDS ORDERED: CARVEDILOL 12.5 MG TABLET PO SCH (18:00)
[2023-12-12] MEDS ORDERED: CARVEDILOL 6.25 MG TABLET PO SCH (18:00)
== END 2023-12-12 16:55 | disposition home health service (06) | DRG 559 ==
PROVIDERS: ADMIT Physical Medicine & Rehabilitation Pain Medicine; ATTEND Physical Medicine & Rehabilitation Pain Medicine
DX: Z47.89 Encounter for other orthopedic aftercare (principal); G06.1 Intraspinal abscess and granuloma; N17.9 Acute kidney failure, unspecified; R78.81 Bacteremia; I25.10 Atherosclerotic heart disease of native coronary artery without angina pectoris; I10 Essential (primary) hypertension; Z95.5 Presence of coronary angioplasty implant and graft; B96.5 Pseudomonas (aeruginosa) (mallei) (pseudomallei) as the cause of diseases classified elsewhere; E11.9 Type 2 diabetes mellitus without complications; E78.5 Hyperlipidemia, unspecified; M41.9 Scoliosis, unspecified; M43.16 Spondylolisthesis, lumbar region; M51.36 Other intervertebral disc degeneration, lumbar region; N40.0 Benign prostatic hyperplasia without lower urinary tract symptoms; Z79.82 Long term (current) use of aspirin; Z79.899 Other long term (current) drug therapy; R26.9 Unspecified abnormalities of gait and mobility; I95.1 Orthostatic hypotension
CPT/HCPCS: 36415; 70030-TC; 72148; 83735; 84100; 85025; A4663; J0692; J1644; J1815; J3301; J3490; J7040; Q0162